=== PATIENT | male | born 1965 | race Caucasian/White ===

== ENCOUNTER 2024-01-07 13:29 | Emergency (ER) | payer OTHER, SELFPAY ==
[2024-01-07 13:33] VITALS: BP 140/67; PULSE 74; RESP 18; TEMP 36.6; O2SAT 96; BMI 31.9
--- NOTE | 2024-01-07 13:56 | ED_ITS ---
HPI - Eye Problem General Chief complaint: Eye Problems Stated complaint: CONTACT STUCK IN EYE Time Seen by Provider: 01/07/24 13:38 Source: patient Mode of arrival: walk-in Limitations: no limitations History of Present Illness HPI Narrative: The patient presenting to us with a right eye irritation that he thought initially that he left his contact lenses in his eyes he did try to take them out and they may be that would cause the irritation, he have no blurry vision no pain and no foreign body sensation in his eyes he mentioned that he usually does not feel when he have his contact lenses. The patient denies any other complaints Related Data Previous Rx's Medication Instructions Recorded erythromycin 5 mg/gram (0.5 %) eye 1 applic ophthalmic (eye) Q4H 01/07/24 ointment right eye 3 days #3.5 grams Allergies Allergy/AdvReac Type Severity Reaction Status Date / Time No Known Drug Allergies Allergy Verified 01/07/24 13:36 Review of Systems ROS Status of ROS 10 or more systems reviewed and unremark able except as noted in history and below PFSH PFSH Social History Smoking status: Never smoker Exam Narrative Exam Narrative: Nurses notes and vital signs reviewed and patient is not hypoxic. General: Well-appearing and in no apparent distress. Skin: Warm, dry, no pallor noted. No rash. Head: Normocephalic, atraumatic. Neck: Supple, non-tender. Eye: Pupils are equal, round and it was noted that the patient have some conjunctival hemorrhage on the right aspect of his right eye mostly lateral to the cornea it was also noted that he have on fluorescent light examination that he have a small abrasion of almost 1 mm by half millimeter on the lateral aspect mostly secondary to the irritation from the attempt to remove the lenses. Cornea is intact no fluorescein intake Ears, Nose, Mouth, and Throat: TM are clear, no nasal mucosal hypertrophy. Oral mucosa is moist, no posterior oropharynx erythema, uvula is mid-line Cardiovascular: Regular Rate and Rhythm without murmur, gallop or rub. Respiratory: No accessory muscle use or respiratory distress. Lungs are clear to auscultation, no wheezing, rales or rhonchi Chest Wall: no tenderness Back: No midline thoracic or lumbar vertebral tenderness. No CVA tenderness Musculoskeletal: normal ROM, no calf or popliteal tenderness, no lower extremity edema/swelling GI: Abdomen is soft, non-distended. Normal bowel sounds. No masses appreciated. No tenderness to palpation. No rebound, guarding, or rigidity noted. Neurological: A&O x4. No cranial nerve dysfunction observed. No truncal ataxia. Moves all extremities. Sensation intact. Psychiatric: Cooperative and interactive. Normal mood and affect. Constitutional Vital Signs, click to edit/add: Last Vital Signs Temp 97.9 F 01/07/24 13:33 Pulse 74 01/07/24 13:33 Resp 18 01/07/24 13:33 BP 140/67 01/07/24 13:33 Pulse Ox 96 01/07/24 13:33 O2 Del Method Room Air 01/07/24 13:33 Course Vital Signs Vital signs: Vital Signs Temperature 97.9 F 01/07/24 13:33 Pulse Rate 74 01/07/24 13:33 Respiratory Rate 18 01/07/24 13:33 Blood Pressure 140/67 01/07/24 13:33 Pulse Oximetry 96 01/07/24 13:33 Oxygen Delivery Method Room Air 01/07/24 13:33 Temperature 97.9 F 01/07/24 13:33 Pulse Rate 74 01/07/24 13:33 Respiratory Rate 18 01/07/24 13:33 Blood Pressure 140/67 01/07/24 13:33 Pulse Oximetry 96 01/07/24 13:33 Oxygen Delivery Method Room Air 01/07/24 13:33 MDM - Eye Problem MDM Narrative Medical decision making narrative: Right now I could not find any lenses The patient is having a small conjunctival abrasion he was started on gudelia thromycin ointment and he was instructed to follow-up with ophthalmology within 2 to 3 days The patient is to follow up with primary care physician in next 2-3 days or to return to the emergency department should any of the signs or symptoms worsen or new symptoms develop. The patient agrees with the following Diagnosis and Treatment plan and the patient will be discharged home. Discharge Plan Discharge Chief Complaint: Eye Problems Clinical Impression: Abrasion of conjunctiva Qualifiers: Encounter type: initial encounter Laterality: right Qualified Code(s): S05.01XA - Injury of conjunctiva and corneal abrasion without foreign body, right eye, initial encounter Patient Disposition: Home, Self-Care Time of Disposition Decision: 13:51 Prescriptions / Home Meds: New erythromycin 5 mg/gram (0.5 %) ointment 1 applic ophthalmic (eye) Q4H 3 Days Qty: 3.5 0RF Instructions: Corneal Abrasion (DC) Stand Alone Forms: Portal Instructions Referrals: Teodoro Mathews MD [Primary Care Provider] - 1 week
== END 2024-01-07 14:02 | disposition home or self-care (01) ==
PROVIDERS: Emergency Provider Emergency Medicine; PCP Family Medicine
DX: S05.01XA Injury of conjunctiva and corneal abrasion without foreign body, right eye, initial encounter (principal); X58.XXXA Exposure to other specified factors, initial encounter
CPT/HCPCS: 99282